=== PATIENT | male | born 1960 | race American Indian/Alaskan Native ===

== ENCOUNTER 2016-09-02 22:04 | Emergency (ER) | payer MEDICAID ==
[2016-09-02] MEDS ORDERED: Sodium Chloride 0.9% 2,000 ML IV ONE (23:15)
--- NOTE | 2016-09-02 23:23 | ED Physician Chart ---
Chief Complaint/HPI - Patient Information Date Seen:: 09/02/16 Time Seen:: 23:10 Chief Complaint:: leg pain History of Present Illness:: Patient complains of leg and foot pain. He had a verbal altercation with his significant other in [place] 5 days ago. Since then he's been walking. Allergies:: Allergies Allergy/AdvReac Type Severity Reaction Status Date / Time No Known Allergies Allergy Verified 09/02/16 22:47 Vitals:: Vital Signs - 8 hr 09/02/16 22:30 Temp 97.9 F HR 99 RR 18 BP 160/80 O2 Sat % 96 Historian:: Patient Review:: Nurse's Note Reviewed Review of Systems - Review of Systems General/Constitutional: No fever, No chills Skin: No skin lesions Head: No headache Eyes: No loss of vision ENT: No earache Neck: No neck pain Cardio Vascular: No chest pain Pulmonary: No SOB GI: No nausea, No vomiting G/U: No dysuria Musculoskeletal: Bone or joint pain Endocrine: No polyuria, No polydipsia Psychiatric: No prior psych history Hematopoietic: No bruising Neurological: No syncope Past Medical History - Past Medical History Past Medical History: HTN, DM, Other (hearing impaired) Family History: Heart disease, Diabetes Melitus, HTN Social History: Smoker, No Alcohol, Other (smokes 1 pack of cigarettes per day) Surgical History: Appendectomy, other (nasal reconstructive surgery; 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) Medication: Reviewed Family Medical History - Family Member Mother History Unknown: Yes Labs/Radiology/EKG Results - Lab Results Results: Laboratory Results - last 24 hr 09/02/16 09/02/16 23:20 23:20 WBC 12.5 H RBC 5.33 Hgb 15.5 Hct 46.0 MCV 86.4 MCH 29.0 MCHC Differential 33.6 RDW 12.7 Plt Count 193 MPV 10.2 Neutrophils % 67.8 Lymphocytes % 22.9 Monocytes % 5.9 Eosinophils % 0.7 Basophils % 2.7 H Sodium 140 Potassium 3.3 L Chloride 106 Carbon Dioxide 27.2 Anion Gap 10.1 BUN 10 Creatinine 0.7 Est GFR ( Amer) > 60.0 Est GFR (Non-Af Amer) > 60.0 BUN/Creatinine Ratio 14.3 Glucose 98 Calcium 9.9 Magnesium 1.7 L Creatine Kinase 196 ED Septic Shock - . Is Septic Shock (SBP<90, OR Lactate>4 mmol\L) present?: No - <6hrs of presentation: Vital Signs: Vital Signs - 8 hr 09/02/16 22:30 Temp 97.9 F HR 99 RR 18 BP 160/80 O2 Sat % 96 Reassessment (Disposition) - Reassessment Reassessment Condition:: Improved - Diagnosis Diagnosis:: musculoskeletal pain; hypokalemia - Aftercare/Follow up Instructions Aftercare/Follow-Up Instructions:: Refer to Discharge Instructions - Patient Disposition Discharge/Transfer:: Home Condition at Disposition:: Stable, Unchanged
[2016-09-02 23:32] LABS: % NEUTROPHILS 67.8 % (40.0-80.0)
[2016-09-02 23:37] LABS: % BASOPHILS 2.7 % (0.0-2.0); % EOSINOPHILS 0.7 % (0.0-5.0); % LYMPHOCYTES 22.9 % (20.0-50.0); % MONOCYTES 5.9 % (2.0-10.0); HEMOGLOBIN 15.5 gm/dL (13.2-17.3); MEAN CELL VOLUME 86.4 fl (80-99); MEAN CORPUSCULAR HGB CONC 33.6 pg (28.0-36.0); MEAN PLATELET VOLUME 10.2 fl; NEUTROPHILE ABSOLUTE 8.5 Th/cmm (1.8-8.0); PLATELET COUNT 193 Th/cmm (150-400); RED BLOOD COUNT 5.33 Mil/cmm (4.30-5.70); RED CELL DISTRIBUTION WIDTH 12.7 % (11.5-20.0)
[2016-09-02 23:43] LABS: WHITE BLOOD COUNT 12.5 Th/cmm (4.8-10.8)
[2016-09-02 23:45] LABS: ANION GAP 10.1 (7.0-16.0); BUN - UREA NITROGEN 10 mg/dL (7-25); BUN/CREATININE RATIO 14.3; CALCIUM SERUM 9.9 mg/dL (8.6-10.3); CARBON DIOXIDE 27.2 mEq/L (21.0-31.0); CHLORIDE 106 mEq/L (98-107); CREATININE - SERUM 0.7 mg/dL (0.7-1.3); GLUCOSE 98 mg/dL (70-105); MAGNESIUM 1.7 mg/dL (1.9-2.7); POTASSIUM SERUM 3.3 mEq/L (3.5-5.1); SODIUM SERUM 140 mEq/L (136-145)
[2016-09-03] MEDS ORDERED: Potassium Chloride 20 mEq ER Tab PO ONE ×2 (01:50→02:23)
== END 2016-09-03 03:00 | disposition home or self-care (01) ==
LOC: ER 22:04
DX: M79.606 Pain in leg, unspecified (principal); I10 Essential (primary) hypertension; E87.6 Hypokalemia; E11.9 Type 2 diabetes mellitus without complications; F17.210 Nicotine dependence, cigarettes, uncomplicated; Z90.49 Acquired absence of other specified parts of digestive tract
CPT/HCPCS: 36415-UA; 80048-TC; 82550-TC; 83735-TC; 85025-TC; J7030; Z7502